=== PATIENT | female | born 2005 | race Two or more races ===

== ENCOUNTER 2024-01-22 10:07 | Emergency (ER) | payer OTHER ==
[~2024-01-22] VITALS: Ht 170.2 cm; Wt 68.6 kg
[2024-01-22 11:15] LABS: BASO % 0.5 % (0.0-1.0); EOS # 0.1 10^3/uL (0.0-0.5); EOS % 1.7 % (0.0-3.0); HEMATOCRIT 41.1 % (36.0-47.0); LYMPH # 2.6 10^3/uL (1.5-5.0); LYMPH % 34.7 % (24.0-44.0); MEAN CORPUSCULAR HEMOGLOBIN 31.5 pg (27.0-33.0); MEAN CORPUSCULAR HGB CONC 34.1 g/dl (32.0-36.5); MEAN CORPUSCULAR VOLUME 92.6 fl (80.0-96.0); MONO # 0.6 10^3/uL (0.0-0.8); MONO % 7.5 % (2.0-8.0); NEUTROPHILS # 4.2 10^3/uL (1.5-8.5); NEUTROPHILS % 55.3 % (36.0-66.0); PLATELET COUNT, AUTOMATED 291 10^3/uL (150-450); RED BLOOD COUNT 4.44 10^6/uL (4.00-5.40); WHITE BLOOD COUNT 7.6 10^3/uL (4.0-10.0)
[2024-01-22 11:44] LABS: BLOOD UREA NITROGEN 7 MG/DL (9-23); CALCIUM LEVEL 9.8 MG/DL (8.5-10.1); CARBON DIOXIDE LEVEL 27 MMOL/L (20-31); CHLORIDE LEVEL 108 MMOL/L (98-107); CREATININE FOR GFR 0.54 MG/DL (0.55-1.30); GLUCOSE, FASTING 96 MG/DL (60-100); SODIUM LEVEL 140 MMOL/L (136-145)
[2024-01-22 11:49] LABS: HCG, SERUM QUALITATIVE NEGATIVE (NEGATIVE)
[2024-01-22 12:52] VITALS: BP 113/79; TEMP 96.7; O2SAT 98
[2024-01-22] MEDS ORDERED: IBUP80TA PO (13:19)
== END 2024-01-22 13:26 | disposition home or self-care (01) ==
LOC: M ED 10:07
DX: N83.291 Other ovarian cyst, right side (principal); R19.09 Other intra-abdominal and pelvic swelling, mass and lump; Z79.1 Long term (current) use of non-steroidal anti-inflammatories (NSAID)

== ENCOUNTER → 2024-02-26 | Outpatient (CLI) | payer OTHER ==
[~2024-02-26] MED LIST: IBUP80TA PO
== END ==
LOC: M WHC 10:36
PROVIDERS: ATTEND Nurse Practitioner Family
DX: Z13.820 Encounter for screening for osteoporosis (principal); M84.3 Stress fracture

== ENCOUNTER 2024-07-02 20:03 | Emergency (ER) | payer OTHER ==
[~2024-07-02] VITALS: Ht 170.2 cm; Wt 68.7 kg
[2024-07-02 20:11] VITALS: BP 111/71; TEMP 97.2; O2SAT 99
[2024-07-02 23:34] LABS: Trichomonas vaginalis (AMP) NOT DETECTED (NEGATIVE)
[2024-07-02 23:58] LABS: GC DNA AMPLIFICATION NEGATIVE (NEGATIVE)
== END 2024-07-03 02:24 | disposition left against medical advice (07) ==
LOC: M ED 20:03
DX: Z53.21 Procedure and treatment not carried out due to patient leaving prior to being seen by health care provider (principal)